=== PATIENT | male | born 1930 | race Caucasian/White ===

== ENCOUNTER 2016-12-29 17:41 | Inpatient (IN) | payer OTHER ==
[~2016-12-29] VITALS: Ht 170.2 cm; Wt 70.0 kg
[2016-12-29 19:45] VITALS: BP 154/57; PULSE 83; TEMP 36.6; O2SAT 97; Ht 170.2 cm; Wt 70.0 kg
[2016-12-29] MEDS ORDERED: OXYCODONE HCL IR 5 MG TAB (IMMEDIATE RELEASE) PO PRN (19:45)
[2016-12-29] MEDS ORDERED: ONDANSETRON INJ 2 MG/ML 2 ML VIAL IV PRN (19:45)
[2016-12-29] MEDS ORDERED: ALUMINUM/MAGNESIUM/SIMETH (MAALOX MAX) 30 ML UDC PO PRN (19:45)
[2016-12-29] MEDS ORDERED: MAGNESIUM HYDROXIDE SUSP 30 ML UDC PO PRN (19:45)
[2016-12-29] MEDS ORDERED: MoRPHine SULFATE 4 MG/ML 1 ML CARP\\VIAL IV PRN (19:45)
[2016-12-29] MEDS ORDERED: VANCOMYCIN CONSULT ACTIVE PRN (19:54)
[2016-12-29] MEDS ORDERED: PATIENT'S ALLERGY INFO NEEDS ENTERED SCH (20:00)
[2016-12-29] MEDS ORDERED: PIPERACILL/TAZOBAC CONSULT ACTIVE PRN (20:00)
[2016-12-29] MEDS ORDERED: PATIENT'S HEIGHT AND/OR WEIGHT NEEDED SCH (20:00)
[2016-12-29] MEDS ORDERED: QUETIAPINE FUMARATE 25 MG TAB PO PRN (20:15)
--- NOTE | 2016-12-29 20:24 | History and Physical ---
History & Physical Date & Time of Service: Dec 29, 2016 at 20:15 Chief Complaint: Hand Cellulitis Primary Care Physician: Alok Cardona M.D. History of Present Illness 86-year-old male transferred from [facility] With significant right hand cellulitis after the ER doctor discussed case with Dr. Schumacher. Reportedly the patient had a blood transfusion a few days prior with the IV site in his right proximal forearm and then over the next few days developed pain erythema and swelling to his right hand markedly distal to the IV puncture site. The IV site itself although slightly bruised looks clean dry and intact and not infected. The patient has no significant paresthesias he cannot approximate his hand fully to a fist but he has good capillary refill distally there is no pointing or fluctuance and imaging from [facility] does not suggest a drainable fluid collection. Past Medical/Surgical History Chronic anemia left eye blindness coronary disease with previous NE and CABG gout back fusion total knee arthroplasty right shoulder clean out atrial fibrillation on full anticoagulation states was hospitalized in the summer with heart failure records pending from [facility] Social History Smoking Status: Former Smoker Smokeless Tobacco Use: No Marital Status: Housing status: lives with family Review of Systems Constitutional: + fever, + chills Eyes: + problem reported (loss of vision), No worsening of vision, No eye pain ENT: No hearing loss, No unusual epistaxis Respiratory: No cough, No sputum Cardiovascular: No chest pain, No orthopnea Abdomen: No pain, No nausea, No vomiting Musculoskeletal: + joint pain, + muscle pain, + swelling Genitourinary - Male: + hematuria, + dysuria Neurologic: + memory loss, + paralysis, + weakness (especially difficult gait) Psychiatric: + depression symptoms, + anhedonism, + problem reported (does get hospital confusion) Endocrine: + fatigue, + excessive thirst Integumentary: + rash, + itch Physical Exam General Appearance: WD/WN, + mild distress, + thin Head: normocephalic, atraumatic Eyes: + pertinent finding (left eye is cloudy) ENT: hearing grossly normal, pharynx normal Neck: supple, no JVD Respiratory/Chest: chest non-tender, lungs clear Cardiovascular: + systolic murmur, + irregularly irregular Abdomen/GI: normal bowel sounds, non tender, soft Extremities/Musculoskelatal: no pedal edema, + pertinent finding (marked swelling erythema and warmth to his right hand old Palmar and dorsal aspect) Neurologic/Psych: alert, oriented x 3 Skin: + pertinent finding (redness to his hand) Lymphatic: no adenopathy (no axillary lymphadenopathy) Diagnostics Laboratory Results Microbiology Results 12/29/16 Blood Culture, Received Pending 12/29/16 Blood Culture, Received Pending Diagnostic Radiology Vertebral report from CT scan per Dr. Diaz shows no fluid collection, pending images scanned into our system Laboratory show white count of 4.1 macrocytic anemia hemoglobin 8.7 renal function reasonable 23 and 1.2 chronic kidney disease stage III Sedimentation rate greater than 140? Moderate malnutrition with albumin 2.7 Impression Assessment and Plan 86-year-old male with right hand cellulitis with recent venipuncture for transfusion There is no compartment syndrome or neurological compromise yet the patient has blood cultures from our facility and will be placed on vancomycin and Zosyn has received a vancomycin dose at [facility]. For his history of "heart failure" atrial fibrillation patiently maintain him on his Lasix and potassium his Eliquis and aspirin will be held in case surgical intervention be required and the patient kept nothing by mouth after midnight except meds For his GERD for tonsil be continued For his macrocytic anemia he is typically on B12 B12 and folic acid will be checked Orthopedic consultation DVD preventions contraindicated at this point as he receives Eliquis today afterwards if no surgery is required. May return to this medication for both atrial fibrillation and DVT prevention VTE Prophylaxis VTE Risk Assessment Done? Y/N: Yes Risk Level: Moderate
[2016-12-29] MEDS: MoRPHine SULFATE 2 MG/ML CARP IV PRN ×2 (20:51→21:40)
[2016-12-29] MEDS ORDERED: VANCOMYCIN INJ 750 MG in SODIUM CHLORIDE 0.9% 250ML 250 ML IV SCH (21:00)
[2016-12-29] MEDS ORDERED: PIPERACILL/TAZOBAC IV 3.375 GM in DEXTROSE 5% 100ML IV ONE (21:00)
[2016-12-29] MEDS: DOCUSATE SODIUM 100 MG CAP PO SCH (21:40)
[2016-12-29 22:53] VITALS: BP 129/68; PULSE 63; TEMP 36.7; O2SAT 96
--- NOTE | 2016-12-29 22:59 | Pharmacy Progress Note ---
Pharmacy Antibiotic Consult Date of Service: Dec 29, 2016. Pharmacy Dosing Scope Pharmacy is consulted to initiate vancomycin and Zosyn IV dosing therapy, order appropriate labs and adjust drug dose/frequency. Subjective The patient is a 86 year old male admitted on Dec 29, 2016 at 19:31 as a transfer from [facility] ER with right hand cellulitis with recent venipuncture for transfusion Objective Height (Feet): 5 Height (Inches): 7.00 Weight (Kilograms): 70.000 Recent Pertinent Medications Vancomycin 1000mg given at [facility] Assessment & Plan Vancomycin for right hand cellulitis. Loading dose: 25mg/kmg given [facility] + 750 mg IV X 1 dose on admission here to complete load. Then vanco 1000mg mg (~14mg/kg) IV every 20 hours. Goal trough level estimate: between 15 - 20 mcg/mL. Peak and trough or random level has been ordered for: -19 prior to 0400 dose. Zosyn: 3.375gm x 1 over 30 min, then 3.375gm IV q 8 hrs ext infusion for CrCl > 20ml/min. Pharmacy will continue to follow and will adjust dose/frequency as necessary. Thank you
[2016-12-29] MEDS: ACETAMINOPHEN 325 MG TAB PO PRN (23:38)
[2016-12-30] VITALS (9 sets, daily range): BP systolic 105–165; BP diastolic 42–73; PULSE 62–84; TEMP 36.3–36.9; O2SAT 96–99
[2016-12-30] MEDS: MoRPHine SULFATE 2 MG/ML CARP IV PRN (01:56)
[2016-12-30] MEDS: PIPERACILL/TAZOBAC IV 3.375 GM in DEXTROSE 5% 100ML 100 ML IV SCH ×3 (03:48→20:53)
[2016-12-30 06:32] LABS: HEMATOCRIT 21.7 % (42-52); MEAN CELL VOLUME 99.1 fL (80-100); MEAN CORPUSCULAR HEMOGLOBIN 34.2 pg (25-34); MEAN CORPUSCULAR HGB CONC 34.6 g/dl (32-36); PLATELET COUNT 131 K/uL (130-400); RED BLOOD COUNT 2.19 M/uL (4.7-6.1)
[2016-12-30 07:00] LABS: BUN/CREATININE RATIO 18.2 (10-20); CALCIUM 8.3 mg/dl (8.5-10.1); CREATININE 1.07 mg/dl (0.60-1.40); POTASSIUM 3.9 mmol/L (3.5-5.1)
[2016-12-30] MEDS: DOCUSATE SODIUM 100 MG CAP PO SCH ×2 (08:41→20:53)
[2016-12-30] MEDS: POTASSIUM CHLORIDE 20 MEQ TABCR PO SCH (08:42)
[2016-12-30] MEDS: PANTOprazole SOD 40 MG TAB PO SCH (08:42)
[2016-12-30] MEDS: FUROSEMIDE 40 MG TAB PO SCH (08:42)
[2016-12-30] MEDS: CHOLECALCIFEROL 400 INTER.UNIT TAB PO SCH (09:00)
[2016-12-30] MEDS: CYANOCOBALAMIN 500 MCG TAB (VIT B-12) PO SCH (09:00)
[2016-12-30] MEDS ORDERED: MoRPHine SULFATE 2 MG/ML CARP IV PRN (09:45)
--- NOTE | 2016-12-30 09:55 | Hospitalist Progress Note ---
Hospitalist Progress Note Date of Service Dec 30, 2016. (Kya Woodard PA-C) Subjective Pt evaluation today including: conversation w/ patient, physical exam, chart review, lab review, review of studies, conversation w/ audit consultant (Orthopedics) , review of inpatient medication list Pain: R Hand/Wrist PO Intake: NPO Voiding: no voiding problems Patient seen and evaluated. No acute events overnight. Patient reporting significant pain in the hand and wrist. Has significant swelling and unable to flex fingers or make a fist. Pain extends to mid-forearm but does not impact the elbow. Patient last transfused on 12/25. Hemoglobin 8.7 at [facility] and is 7.5 today. Patient is asymptomatic with appropriate BP, no CP, no SOB. Reporting last dose of Eliquis was 12/29 in the AM. Constitutional: No fever, No chills Eyes: No see HPI ENT: No nasal symptoms, No sore throat Respiratory: No cough, No shortness of breath Cardiovascular: No chest pain, No palpitations Abdomen: No pain, No nausea, No vomiting, No diarrhea, No constipation Musculoskeletal: + swelling (R hand/wrist), + problem reported (pain in R hand/wrist), No calf pain Male : No dysuria Neurologic: No numbness/tingling Heme: No abnormal bleeding/bruising Skin: No rash (Kya Woodard PA-C) Medications Current Inpatient Medications Medications (Trade) Dose Ordered Sig/González Route Start Time Stop Time Status Last Admin Dose Admin Acetaminophen (Tylenol Tab) 650 mg Q4H PRN PO 12/29/16 19:45 01/28/17 19:44 12/29/16 23:38 650 MG Al Hydrox/Mg Hydrox/Simethicone (Maalox Max Susp) 15 ml Q4H PRN PO 12/29/16 19:45 01/28/17 19:44 Magnesium Hydroxide (Milk Of Magnesia Susp) 30 ml Q6H PRN PO 12/29/16 19:45 01/28/17 19:44 Ondansetron HCl (Zofran Inj) 4 mg Q6H PRN IV 12/29/16 19:45 01/28/17 19:44 Vancomycin HCl (Consult) 1 ea UD PRN N/A 12/29/16 19:54 01/28/17 19:53 Piperacillin Sod/ Tazobactam Sod 3.375 gm/Dextrose 115 ml @ 28.75 mls/ hr Q8H IV 12/30/16 04:00 01/09/17 03:59 12/30/16 03:48 28.75 MLS/HR Morphine Sulfate (MoRPHine SULFATE INJ) 4 mg Q4H PRN IV 12/29/16 19:45 01/12/17 19:44 Piperacillin Sod/ Tazobactam Sod (Consult) 1 ea UD PRN N/A 12/29/16 20:00 01/28/17 19:59 Furosemide (Lasix Tab) 40 mg QAM PO 12/30/16 09:00 01/29/17 08:59 12/30/16 08:42 40 MG Pantoprazole Sodium (Protonix Tab) 40 mg QAM PO 12/30/16 09:00 01/29/17 08:59 12/30/16 08:42 40 MG Potassium Chloride (Klor-Con Tab) 20 meq QAM PO 12/30/16 09:00 01/29/17 08:59 12/30/16 08:42 20 MEQ Docusate Sodium (coLACE CAP) 100 mg BID PO 12/29/16 21:00 01/28/17 20:59 12/30/16 08:41 100 MG Cyanocobalamin (Vitamin B-12 Tab) 500 mcg QAM PO 12/30/16 09:00 01/29/17 08:59 Cholecalciferol (Vitamin D Tab) 400 inter.unit QAM PO 12/30/16 09:00 01/29/17 08:59 Quetiapine Fumarate (seroQUEL TAB) 25 mg HS PRN PO 12/29/16 20:15 01/28/17 20:14 Vancomycin HCl 1000 mg/Sodium Chloride 270 ml @ 125 mls/hr Q20H IV 12/30/16 12:00 01/08/17 11:59 Morphine Sulfate (MoRPHine SULFATE INJ) 2 mg Q2H PRN IV 12/30/16 09:45 01/12/17 19:44 UNV (Kya Woodard PA-C) Objective Vital Signs Date Time Temp Pulse Resp B/P (MAP) Pulse Ox O2 Delivery O2 Flow Rate FiO2 12/30/16 07:17 36.6 64 16 138/68 (91) 97 Room Air 12/29/16 23:35 Room Air 12/29/16 22:53 36.7 63 18 129/68 (88) 96 Room Air 12/29/16 19:45 36.6 83 16 154/57 97 Room Air (Kya Woodard PA-C) Physical Exam General Appearance: no apparent distress, + thin Eyes: sclerae normal (R eye), + pertinent finding (L eye blind; pupil with opaque coloration) ENT: hearing grossly normal Neck: supple, no JVD, trachea midline Respiratory/Chest: lungs clear, normal breath sounds, no respiratory distress, no accessory muscle use Cardiovascular: no gallop, no murmur, + irregularly irregular Abdomen: normal bowel sounds, non tender, soft Extremities: no pedal edema, no calf tenderness, + pertinent finding (R edematous hand and fingers; pain to palpation of hand, wrist, and mid-forearm; pulses 2+; immediate cap refill; pain with movement of fingers with thumb, middle, and ring finger most painful) Neurologic/Psychiatric: alert, oriented x 3 Skin: normal color, warm/dry (Kya Woodard, REBECAC) Laboratory Results Last 24 Hours Test 12/30/16 05:46 White Blood Count 3.40 K/uL Red Blood Count 2.19 M/uL Hemoglobin 7.5 g/dL Hematocrit 21.7 % Mean Corpuscular Volume 99.1 fL Mean Corpuscular Hemoglobin 34.2 pg Mean Corpuscular Hemoglobin Concent 34.6 g/dl RDW Standard Deviation 62.5 fL RDW Coefficient of Variation 17.4 % Platelet Count 131 K/uL Mean Platelet Volume 10.0 fL Sodium Level 136 mmol/L Potassium Level 3.9 mmol/L Chloride Level 103 mmol/L Carbon Dioxide Level 28 mmol/L Anion Gap 5.0 mmol/L Blood Urea Nitrogen 20 mg/dl Creatinine 1.07 mg/dl Est Creatinine Clear Calc Drug Dose 48.1 ml/min Estimated GFR () 73.5 Estimated GFR (Non- 63.4 BUN/Creatinine Ratio 18.2 Random Glucose 83 mg/dl Calcium Level 8.3 mg/dl Vitamin B12 Level > 2000 pg/mL Folate 22.07 ng/mL (Kya Woodard, REBECAC) Assessment and Plan Mr. Maciel is an 86 y/o male with R hand cellulitis 2/2 recent venipuncture for blood transfusion on 12/25 R Hand Cellulitis 2/2 Venipuncture: - BCx x 1 from [facility] positive for gram + cocci - await results and continue to cover with Vanc - Elevation and ice for comfort; PRN Morphine - Zosyn and Vancomycin - Orthopedics following - discussed with Abran Gay - plan for MRI and possible washout this evening Suspect Persistent Atrial Fibrillation: Rate Controlled - Not on rate control medication - Eliquis on hold pending surgical intervention - takes 5 mg BID - last dose in AM Chronic Mixed Diastolic and Systolic CHF: - Appears euvolemic and denies SOB, angina, palpitations, orthopnea - Echo - mild LV dysfunction with global hypokinesis with EF 40-45%; moderate pulmonary HTN - Lasix 40 mg daily - will hold overnight in anticipation of surgical intervention today and place when kidney function evaluated Macrocytic Anemia: - Last transfusion on 12/25. Hemoglobin at 7.5 this AM and improved to 8.2. Asymptomatic - Will hold off on transfusion at this time - Continue B12 and folate - labs acceptable CKD Stage III: STABLE - Monitor renal function zenaida. after surgical intervention Pre-Operative Clearance: - Patient with CHF and H/O HI with CABG - no chest pain and ambulates without chest pain or significant dyspnea - CKD stable with Cr 1.07 and estimate GFR 63 - Functionally independent but has a level of protein malnutrition - Patient HR currently rate controlled A Fib and last dose of Eliquis > 24 hrs - Patient is optimal for surgical intervention Disposition: - Pain management and IV Abx with possible washout today - possible D/C 3-4 days Continued [facility] stay due to: multiple IV medications needed Discharge planning: home (Kya Woodard, PA-C) i personally examined pt and verified all wayne points сергей Woodard PAC feeling hand pain about the same no real change w abx awaiting surgery this evening vitals noted nad breathing unlabored hand swollen, erythematous and tender, no crepitis hand cellulitis - IV abx, for OR tonight otherwise as above (Alphonso Schumacher D.O.)
[2016-12-30] MEDS: VANCOMYCIN INJ 1,000 MG in SODIUM CHLORIDE 0.9% 250ML 250 ML IV SCH (12:35)
[2016-12-30 12:36] LABS: HEMATOCRIT 23.6 % (42-52)
[2016-12-30] MEDS ORDERED: ATROPINE SULFATE 0.1 MG/ML 5ML SYR IV PRN (16:45)
[2016-12-30] MEDS ORDERED: ONDANSETRON INJ 2 MG/ML 2 ML VIAL IV PRN (16:45)
[2016-12-30] MEDS ORDERED: EpHEDrine SULFATE INJ 50 MG/ML AMP IV PRN (16:45)
[2016-12-30] MEDS ORDERED: ONDANSETRON INJ 2 MG/ML 2 ML VIAL ONE (16:52)
[2016-12-30] MEDS ORDERED: FENTANYL CITRATE INJ 50 MCG/1 ML 2 ML VIAL ONE ×2 (16:52→18:17)
[2016-12-30] MEDS ORDERED: LIDOCAINE HCL 2% 2 ML VIAL (20MG/ML) ONE (16:52)
[2016-12-30] MEDS ORDERED: PROPOFOL IV EMULSION 10 MG/ML 20 ML VIAL IV ONE (16:52)
[2016-12-30] MEDS ORDERED: BUPIVACAINE 0.5 % 5 MG/1 ML MPF 30ML VIAL ONE (16:56)
[2016-12-30] MEDS ORDERED: BACITRACIN 50000 UNIT VIAL ONE (16:58)
--- NOTE | 2016-12-30 17:18 | History & Physical Bridge Note ---
H&P Re-Evaluation Bridge Note: I have examined the patient, reviewed the History & Physical and in the interval since the performance of the History & Physical I have noted the following changes of clinical significance: I saw him in the preop haolding area, discussed r/b reasonalbe outcomes. will plan for right wrist I and D, possble felxor tenosynovesctomy No changes noted
--- NOTE | 2016-12-30 18:36 | [facility] Post Operative Brief Note ---
Immediate Operative Summary Operative Date Dec 30, 2016. Pre-Operative Diagnosis Right Hand Flexor Tenosynovitis Post-Operative Diagnosis Right Hand Flexor Tenosynovitis Procedure(s) Performed Right Hand Flexor Tenosynovectomy, Aspiration Right Wrist Joint Surgeon Dr. Schumacher Comic Book Writer Surgeon(s) no Estimated Blood Loss 10cc Findings large amount of inflamatory fluid in the carpal tunnel. Specimens Pathology - A. Synovium Right Wrist For Culture - 1. Right wrist fluid - Gram Stain, culture and sensitivity, Aerobic/anaerobic 2. Right wrist joint - Gram Stain, culture and sensitivity, Aerobic/anaerobic 3. Right radiocarpal joint - crustal analysis, cell count to rule out gout Drains no Anesthesia gen Complication(s) None Disposition Recovery Room / PACU
[2016-12-30] MEDS: FENTANYL CITRATE INJ 50 MCG/1 ML 2 ML VIAL IV PRN ×2 (18:59→19:04)
--- NOTE | 2016-12-30 19:09 | Anesthesiology Progress Note ---
Anesthesia Post Op Note Date & Time Dec 30, 2016 at 19:09 Vital Signs Pain Intensity: 5 Vital Signs Past 12 Hours Date Time Temp Pulse Resp B/P (MAP) Pulse Ox O2 Delivery O2 Flow Rate FiO2 12/30/16 19:00 75 28 172/85 100 Oxymask 10 12/30/16 18:50 73 25 181/83 100 Oxymask 10 12/30/16 18:41 36.5 64 24 174/82 98 Oxymask 10 12/30/16 15:33 36.8 74 18 155/70 (98) 96 Room Air 12/30/16 11:14 36.4 76 16 137/67 (90) 97 Room Air 12/30/16 07:35 Room Air 12/30/16 07:17 36.6 64 16 138/68 (91) 97 Room Air Notes Mental Status: alert / awake / arousable, participated in evaluation Pt Amnestic to Procedure: Yes Nausea / Vomiting: adequately controlled Pain: adequately controlled Airway Patency, RR, SpO2: stable & adequate BP & HR: stable & adequate Hydration State: stable & adequate Anesthetic Complications: no major complications apparent
--- NOTE | 2016-12-30 19:57 | OPERATIVE REPORT ---
DATE OF OPERATION: 12/30/2016 PREOPERATIVE DIAGNOSIS: Right wrist infection. POSTOPERATIVE DIAGNOSIS: Right wrist flexor tenosynovitis. PROCEDURE: 1. Right flexor synovectomy at the wrist and forearm. 2. Right wrist aspiration of radiocarpal joint. 3. Median nerve block by surgeon. SURGEON: Dr. Schumacher. GRADUATE TEACHING ASSISTANT: None. ANESTHESIA: General. INDICATIONS: This is a gentleman with progressive pain and swelling in the wrist. He presented with a markedly elevated sed rate of 140. He is transferred from [facility]. He presents for irrigation, debridement and other work as indicated. I saw the patient in preoperative holding area. We discussed risks, benefits, reasonable outcomes and options of treatment. I discussed with him that I may make an incision dorsally and/or volarly to perform irrigation and debridement. I discussed possibility this may represent gout versus infection. He is understanding of these issues. The risks and benefits have been discussed including, but not limited to, risk of infection, nerve injury, stiffness, loss of motion, failure to improve, etc. The patient is agreeable and wishes to proceed. DESCRIPTION OF OPERATION: With an 18 gauge needle, I aspirated the patient's wrist. I obtained a small amount of fluid, but no evidence of gross purulence in the radiocarpal joint. The patient has significant swelling of the volar aspect of the wrist and elected to proceed with opening the volar aspect of the wrist. A made a longitudinal incision over the wrist. Dissection was carried down through the skin and subcutaneous tissue. Incision was made just slightly ulnar to the palmaris longus. Dissection was carried down through the skin and subcutaneous tissue. The fascial layer was sharply incised. There was a large amount of serous fluid encountered, this was slightly dark, did not appear to contain any chalky whitish substance and did not have the appearance of pus. The fluid was sent to pathology to rule out crystals and was sent for culture as well. The radiocarpal joint aspiration was separately sent for crystals as well. There was also significant accumulation of a friable fatty looking tissue, which I sent for pathology. I extended the incision over the carpal tunnel and I released the transverse carpal ligament. The median nerve was identified and protected throughout the case and this was retracted in a radial direction. There was significant synovitis amongst the flexor tendons and there was fluid through the carpal tunnel and extending approximately 6 inches proximal to the wrist crease. Fluid was evacuated. A flexor tenosynovectomy was performed in the wrist and extending into the carpal tunnel. Debridement was performed and the area was copiously irrigated with 3 liters of bacitracin impregnated normal saline. Tourniquet was let down, hemostasis was obtained with bipolar electrocautery. Skin was closed with 4-0 Monocryl. After the wrist incision was closed, I performed a median nerve block, injecting approximately 6 mL of Marcaine into the region of the median nerve proximal to the incision. This was done for pain relief, post-surgery. The patient sent to the PACU in a stable condition in a soft dressing. POSTOP PLAN: Range of motion as tolerated and monitor cultures with monitoring of the wound. I discussed the results of procedure in detail with the family. I attest to the content of the Intraoperative Record and any orders documented therein. Any exception s are noted below.
[2016-12-30 20:21] LABS: SYNOVIAL FLUID APPEARANCE TURBID; SYNOVIAL FLUID COLOR RED; SYNOVIAL FLUID MONONUC RELAT 4.2 %; SYNOVIAL FLUID POLYNUC RELAT 95.8 %
[2016-12-30] MEDS: ACETAMINOPHEN 325 MG TAB PO PRN (20:53)
[2016-12-31 03:26] VITALS: BP 126/67; PULSE 66; TEMP 37.1; O2SAT 96
[2016-12-31] MEDS: PIPERACILL/TAZOBAC IV 3.375 GM in DEXTROSE 5% 100ML 100 ML IV SCH ×3 (03:51→19:59)
[2016-12-31 06:18] LABS: BUN/CREATININE RATIO 19.6 (10-20); CALCIUM 8.4 mg/dl (8.5-10.1); CREATININE 1.09 mg/dl (0.60-1.40); POTASSIUM 3.8 mmol/L (3.5-5.1)
[2016-12-31 07:31] VITALS: BP 140/67; PULSE 59; TEMP 37; O2SAT 97
[2016-12-31] MEDS: DOCUSATE SODIUM 100 MG CAP PO SCH ×2 (07:49→20:36)
[2016-12-31] MEDS: CHOLECALCIFEROL 400 INTER.UNIT TAB PO SCH (07:49)
[2016-12-31] MEDS: VANCOMYCIN INJ 1,000 MG in SODIUM CHLORIDE 0.9% 250ML 250 ML IV SCH (07:49)
[2016-12-31] MEDS: PANTOprazole SOD 40 MG TAB PO SCH (07:49)
[2016-12-31] MEDS: POTASSIUM CHLORIDE 20 MEQ TABCR PO SCH (07:50)
[2016-12-31] MEDS: CYANOCOBALAMIN 500 MCG TAB (VIT B-12) PO SCH (07:50)
[2016-12-31 11:20] VITALS: BP 126/79; PULSE 71; TEMP 36.8; O2SAT 94
--- NOTE | 2016-12-31 11:51 | Orthopedic Progress Note ---
Orthopedic Progress Note Date of Service Dec 31, 2016. Subjective Post OP Day: 1 Reports: feeling well Additional Notes: States that his hand is feeling better today. Having a few sharp pains off and on in the wrist. Objective Dressing intact. Fingers swollen. States he has only mild tingling in the fingers. Good cap refill. Moving the fingers better than yesterday. Date Time Temp Pulse Resp B/P (MAP) Pulse Ox O2 Delivery O2 Flow Rate FiO2 12/31/16 07:31 37.0 59 16 140/67 (91) 97 Room Air 12/31/16 07:30 Room Air 12/31/16 03:26 37.1 66 16 126/67 (86) 96 Room Air 12/31/16 00:15 Room Air 12/30/16 23:32 36.9 62 16 120/53 (75) 96 Room Air 12/30/16 22:29 36.9 79 16 105/42 (63) 98 Nasal Cannula 2.0 12/30/16 21:40 36.7 71 16 134/55 (81) 98 Nasal Cannula 2.0 12/30/16 20:35 36.3 81 16 144/71 (95) 99 Nasal Cannula 2.0 12/30/16 20:04 36.5 84 18 165/73 (103) 99 Nasal Cannula 2.0 12/30/16 19:35 97 Nasal Cannula 2.0 12/30/16 19:35 97 Nasal Cannula 2.0 12/30/16 19:20 36.6 74 24 149/74 98 Nasal Cannula 2 12/30/16 19:10 76 23 165/83 100 Nasal Cannula 2 12/30/16 19:00 75 28 172/85 100 Oxymask 10 12/30/16 18:50 73 25 181/83 100 Oxymask 10 12/30/16 18:41 36.5 64 24 174/82 98 Oxymask 10 12/30/16 15:33 36.8 74 18 155/70 (98) 96 Room Air Laboratory Results 24 Hours: Test 12/30/16 11:59 Hematocrit 23.6 % Hemoglobin 8.2 g/dL Additional Notes: Crystal Analysis Result Comment: Review of a synovial fluid specimen for crystals shows scattered, weakly birefringent rhomboid to eleni shaped crystals present. The crystals are both intra and extracellular. 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 No uric acid crystals of gout are present. Assessment & Plan Assessment: POD 1 s/p 1. Right flexor synovectomy at the wrist and forearm. 2. Right wrist aspiration of radiocarpal joint. 3. Median nerve block by surgeon. 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 Cultures pending. Plan: Dressing change tomorrow
[2016-12-31 12:13] LABS: BASO % 0.5 %; BASO ABS # 0.02 K/uL (0-0.2); EOS % 4.8 %; HEMATOCRIT 22.3 % (42-52); IG% 0.5 %; LYMPH % 19.8 %; LYMPH ABS # 0.74 K/uL (1.2-3.4); MEAN CELL VOLUME 98.7 fL (80-100); MEAN CORPUSCULAR HGB CONC 35.4 g/dl (32-36); MEAN PLATELET VOLUME 9.3 fL (7.4-10.4); NEUT % 62.4 %; PLATELET COUNT 138 K/uL (130-400); RED BLOOD COUNT 2.26 M/uL (4.7-6.1); WHITE BLOOD COUNT 3.74 K/uL (4.8-10.8)
--- NOTE | 2016-12-31 12:35 | Hospitalist Progress Note ---
Hospitalist Progress Note Date of Service Dec 31, 2016. (Kya Woodard PA-C) Subjective Pt evaluation today including: conversation w/ patient, physical exam, chart review, lab review, review of studies, review of inpatient medication list Pain: R Hand PO Intake: Adequate Voiding: no voiding problems Patient seen and evaluated. No acute events overnight. S/P I&D with crystal analysis suggesting pseudogout. Reporting pain is better than yesterday but having sharp sensations in the hand/ wrist. Pain controlled with current regimen Has a little bit more ROM with fingers compared to yesterday and less pain. Constitutional: No fever, No chills Respiratory: No shortness of breath Cardiovascular: No chest pain, No palpitations Abdomen: No pain, No nausea, No vomiting, No diarrhea, No constipation Musculoskeletal: + problem reported (R hand tender but improved), No calf pain Male : No dysuria Heme: No abnormal bleeding/bruising (Kya Woodard, REBECAC) Medications Current Inpatient Medications Medications (Trade) Dose Ordered Sig/González Route Start Time Stop Time Status Last Admin Dose Admin Acetaminophen (Tylenol Tab) 650 mg Q4H PRN PO 12/29/16 19:45 01/28/17 19:44 12/30/16 20:53 650 MG Al Hydrox/Mg Hydrox/Simethicone (Maalox Max Susp) 15 ml Q4H PRN PO 12/29/16 19:45 01/28/17 19:44 Magnesium Hydroxide (Milk Of Magnesia Susp) 30 ml Q6H PRN PO 12/29/16 19:45 01/28/17 19:44 Ondansetron HCl (Zofran Inj) 4 mg Q6H PRN IV 12/29/16 19:45 01/28/17 19:44 Vancomycin HCl (Consult) 1 ea UD PRN N/A 12/29/16 19:54 01/28/17 19:53 Piperacillin Sod/ Tazobactam Sod 3.375 gm/Dextrose 115 ml @ 28.75 mls/ hr Q8H IV 12/30/16 04:00 01/09/17 03:59 12/31/16 12:09 28.75 MLS/HR Morphine Sulfate (MoRPHine SULFATE INJ) 4 mg Q4H PRN IV 12/29/16 19:45 01/12/17 19:44 Piperacillin Sod/ Tazobactam Sod (Consult) 1 ea UD PRN N/A 12/29/16 20:00 01/28/17 19:59 Furosemide (Lasix Tab) 40 mg QAM PO 12/30/16 09:00 01/29/17 08:59 Future Hold 12/30/16 08:42 40 MG Pantoprazole Sodium (Protonix Tab) 40 mg QAM PO 12/30/16 09:00 01/29/17 08:59 12/31/16 07:49 40 MG Potassium Chloride (Klor-Con Tab) 20 meq QAM PO 12/30/16 09:00 01/29/17 08:59 12/31/16 07:50 20 MEQ Docusate Sodium (coLACE CAP) 100 mg BID PO 12/29/16 21:00 01/28/17 20:59 12/31/16 07:49 100 MG Cyanocobalamin (Vitamin B-12 Tab) 500 mcg QAM PO 12/30/16 09:00 01/29/17 08:59 12/31/16 07:50 500 MCG Cholecalciferol (Vitamin D Tab) 400 inter.unit QAM PO 12/30/16 09:00 01/29/17 08:59 12/31/16 07:49 400 INTER.UNIT Quetiapine Fumarate (seroQUEL TAB) 25 mg HS PRN PO 12/29/16 20:15 01/28/17 20:14 Vancomycin HCl 1000 mg/Sodium Chloride 270 ml @ 125 mls/hr Q20H IV 12/30/16 12:00 01/08/17 11:59 12/31/16 07:49 125 MLS/HR Morphine Sulfate (MoRPHine SULFATE INJ) 2 mg Q2H PRN IV 12/30/16 09:45 01/12/17 19:44 12/30/16 23:41 2 MG Ibuprofen (Advil Tab) 200 mg Q6H PRN PO 12/31/16 12:00 01/30/17 11:59 (Kya Woodard, OANH) Objective Vital Signs Date Time Temp Pulse Resp B/P (MAP) Pulse Ox O2 Delivery O2 Flow Rate FiO2 12/31/16 07:31 37.0 59 16 140/67 (91) 97 Room Air 12/31/16 07:30 Room Air 12/31/16 03:26 37.1 66 16 126/67 (86) 96 Room Air 12/31/16 00:15 Room Air 12/30/16 23:32 36.9 62 16 120/53 (75) 96 Room Air 12/30/16 22:29 36.9 79 16 105/42 (63) 98 Nasal Cannula 2.0 12/30/16 21:40 36.7 71 16 134/55 (81) 98 Nasal Cannula 2.0 12/30/16 20:35 36.3 81 16 144/71 (95) 99 Nasal Cannula 2.0 12/30/16 20:04 36.5 84 18 165/73 (103) 99 Nasal Cannula 2.0 12/30/16 19:35 97 Nasal Cannula 2.0 12/30/16 19:35 97 Nasal Cannula 2.0 12/30/16 19:20 36.6 74 24 149/74 98 Nasal Cannula 2 12/30/16 19:10 76 23 165/83 100 Nasal Cannula 2 12/30/16 19:00 75 28 172/85 100 Oxymask 10 12/30/16 18:50 73 25 181/83 100 Oxymask 10 12/30/16 18:41 36.5 64 24 174/82 98 Oxymask 10 12/30/16 15:33 36.8 74 18 155/70 (98) 96 Room Air (Kya Woodard, PA-C) Physical Exam General Appearance: no apparent distress Eyes: + pertinent finding (opacity of L eye (blind)) ENT: hearing grossly normal Neck: supple Respiratory/Chest: lungs clear, normal breath sounds, no respiratory distress, no accessory muscle use Cardiovascular: no gallop, no murmur, + irregularly irregular Abdomen: normal bowel sounds, non tender, soft Extremities: no pedal edema, no calf tenderness, + pertinent finding (R hand/ wrist dressed that is C/D/I; cap refill immediate; sensation intact to fingers; limited ROM due to swelling) Neurologic/Psychiatric: alert, oriented x 3 Skin: normal color, warm/dry (Kya Woodard, PA-C) Laboratory Results Last 24 Hours Test 12/30/16 17:55 12/31/16 05:29 12/31/16 12:04 Synovial Fluid Source OTHER Synovial Fluid Color RED Synovial Fluid Appearance TURBID Synovial Fluid WBC 22608 /uL Synovial Fluid RBC 90552 /uL Synovial Fluid Polynuclear WBCs % 95.8 % Synovial Fluid Mononuclear WBCs % 4.2 % Synovial Fluid Crystals Sodium Level 136 mmol/L Potassium Level 3.8 mmol/L Chloride Level 100 mmol/L Carbon Dioxide Level 28 mmol/L Anion Gap 8.0 mmol/L Blood Urea Nitrogen 21 mg/dl Creatinine 1.09 mg/dl Est Creatinine Clear Calc Drug Dose 47.2 ml/min Estimated GFR () 71.9 Estimated GFR (Non- 62.0 BUN/Creatinine Ratio 19.6 Random Glucose 97 mg/dl Calcium Level 8.4 mg/dl White Blood Count 3.74 K/uL Red Blood Count 2.26 M/uL Hemoglobin 7.9 g/dL Hematocrit 22.3 % Mean Corpuscular Volume 98.7 fL Mean Corpuscular Hemoglobin 35.0 pg Mean Corpuscular Hemoglobin Concent 35.4 g/dl Platelet Count 138 K/uL Mean Platelet Volume 9.3 fL Neutrophils (%) (Auto) 62.4 % Lymphocytes (%) (Auto) 19.8 % Monocytes (%) (Auto) 12.0 % Eosinophils (%) (Auto) 4.8 % Basophils (%) (Auto) 0.5 % Neutrophils # (Auto) 2.33 K/uL Lymphocytes # (Auto) 0.74 K/uL Monocytes # (Auto) 0.45 K/uL Eosinophils # (Auto) 0.18 K/uL Basophils # (Auto) 0.02 K/uL RDW Standard Deviation 60.4 fL RDW Coefficient of Variation 16.9 % Immature Granulocyte % (Auto) 0.5 % Immature Granulocyte # (Auto) 0.02 K/uL (Kya Woodard PA-C) Assessment and Plan Mr. Maciel is an 86 y/o male with R hand cellulitis 2/2 recent venipuncture for blood transfusion on 12/25 R Hand Pseudogout S/P R Flexor Synovectomy and Aspiration 12/30: - BCx x 1 from [place] positive for gram + cocci - BCx here with NGTD - Elevation and ice for comfort; PRN Morphine and Ibuprofen - Zosyn and Vancomycin - continue ABx today but suspect D/C tomorrow - cultures with initial red negative for organisms, culture pending - Orthopedics following - plan for dressing change tomorrow Suspect Persistent Atrial Fibrillation: Rate Controlled - Not on rate control medication - Continue to hold Eliquis today. Likely resumed tomorrow Chronic Mixed Diastolic and Systolic CHF: - Appears euvolemic and denies SOB, angina, palpitations, orthopnea - Echo - mild LV dysfunction with global hypokinesis with EF 40-45%; moderate pulmonary HTN - Lasix 40 mg daily - will hold overnight in anticipation of surgical intervention today and place when kidney function evaluated Macrocytic Anemia: - Last transfusion on 12/25. Hemoglobin at 7.9. Asymptomatic. No need for transfusion at this time - Continue B12 and folate - labs acceptable CKD Stage III: STABLE - Monitor renal function zenaida. after surgical intervention Pre-Operative Clearance: - Patient with CHF and H/O AK with CABG - no chest pain and ambulates without chest pain or significant dyspnea - CKD stable with Cr 1.07 and estimate GFR 63 - Functionally independent but has a level of protein malnutrition - Patient HR currently rate controlled A Fib and last dose of Eliquis > 24 hrs - Patient is optimal for surgical intervention Disposition: - Pain management and await cx - likely D/C Abx and conservative treatment for pseudogout Continued [facility] stay due to: multiple IV medications needed Discharge planning: home (Kya Woodard, PA-C) i personally examined pt and verified all wayne points w Dakotah Woodard PAC hand feeling better. no other complaints no cp no sob no fatigue no pineda vitals noted nad hand wrapped but no erythema R hand tenosynovitis - post op findings most c/w pseudogout - continue abx pending Cx. does seem improved. otherwise as above anemia - stable no blood loss no sx. outpt f/u as long as remains stable - appears this was under outpt w/u and f/u (Alphonso Schumacher D.O.)
[2016-12-31 12:48] LABS: COMPLETE YES; LARGE PLATELETS 1+
[2016-12-31 15:25] VITALS: BP 157/67; PULSE 94; TEMP 36.9; O2SAT 97
[2016-12-31] MEDS: IBUPROFEN 200 MG TAB PO PRN (20:36)
[2017-01-01] MEDS: ACETAMINOPHEN 325 MG TAB PO PRN ×3 (00:07→17:01)
[2017-01-01 00:12] VITALS: BP 142/58; PULSE 56; TEMP 36.8; O2SAT 92
[2017-01-01] MEDS ORDERED: VANCOMYCIN TROUGH SCH (03:30)
[2017-01-01 03:44] LABS: HEMATOCRIT 22.8 % (42-52); MEAN CELL VOLUME 98.7 fL (80-100); MEAN CORPUSCULAR HEMOGLOBIN 33.8 pg (25-34); MEAN CORPUSCULAR HGB CONC 34.2 g/dl (32-36); MEAN PLATELET VOLUME 9.1 fL (7.4-10.4); PLATELET COUNT 138 K/uL (130-400); RED BLOOD COUNT 2.31 M/uL (4.7-6.1); WHITE BLOOD COUNT 3.31 K/uL (4.8-10.8)
[2017-01-01 04:03] LABS: BUN/CREATININE RATIO 17.9 (10-20); CALCIUM 8.3 mg/dl (8.5-10.1); CREATININE 1.16 mg/dl (0.60-1.40); POTASSIUM 3.8 mmol/L (3.5-5.1)
[2017-01-01] MEDS: VANCOMYCIN INJ 1,000 MG in SODIUM CHLORIDE 0.9% 250ML 250 ML IV SCH (04:07)
[2017-01-01] MEDS: PIPERACILL/TAZOBAC IV 3.375 GM in DEXTROSE 5% 100ML 100 ML IV SCH ×2 (04:07→12:37)
[2017-01-01 07:19] VITALS: BP 117/52; PULSE 55; TEMP 36.5; O2SAT 98
--- NOTE | 2017-01-01 08:03 | Orthopedic Progress Note ---
Orthopedic Progress Note Date of Service Jan 01, 2017. Subjective Post OP Day: 2 Reports: feeling well Additional Notes: States hand continues to feel better each day. No new complaints. Objective Dressing removed. Mild drainage noted on dressings. Wound with mild dusky erythema. No overt drainage. Moving the fingers a little better today. Sensation intact. Cap refill less than 2 seconds. Wound redressed. Date Time Temp Pulse Resp B/P (MAP) Pulse Ox O2 Delivery O2 Flow Rate FiO2 01/01/17 07:19 36.5 55 16 117/52 (73) 98 Room Air 01/01/17 00:12 36.8 56 18 142/58 (86) 92 Room Air 12/31/16 23:30 Room Air 12/31/16 18:56 Room Air 12/31/16 15:25 36.9 94 16 157/67 (97) 97 Room Air 12/31/16 11:20 36.8 71 16 126/79 (95) 94 Room Air Laboratory Results 24 Hours: Test 12/31/16 12:04 01/01/17 03:33 White Blood Count 3.74 K/uL Red Blood Count 2.26 M/uL Hemoglobin 7.9 g/dL 7.8 g/dL Hematocrit 22.3 % 22.8 % Mean Corpuscular Volume 98.7 fL Mean Corpuscular Hemoglobin 35.0 pg Mean Corpuscular Hemoglobin Concent 35.4 g/dl Platelet Count 138 K/uL Mean Platelet Volume 9.3 fL Neutrophils (%) (Auto) 62.4 % Lymphocytes (%) (Auto) 19.8 % Monocytes (%) (Auto) 12.0 % Eosinophils (%) (Auto) 4.8 % Basophils (%) (Auto) 0.5 % Neutrophils # (Auto) 2.33 K/uL Lymphocytes # (Auto) 0.74 K/uL Monocytes # (Auto) 0.45 K/uL Eosinophils # (Auto) 0.18 K/uL Basophils # (Auto) 0.02 K/uL Assessment & Plan Assessment: POD 2 s/p 1. Right flexor synovectomy at the wrist and forearm. 2. Right wrist aspiration of radiocarpal joint. 3. Median nerve block by surgeon. 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 Cultures NGTD Plan: No further surgery needed at this time. Daily dressing changes. Gentle finger ROM exercises. Follow up with Dr Schumacher in 10-14 days from the day of surgery. Inhouse Planning Pain Management: Morphine, PO Tylenol
--- NOTE | 2017-01-01 08:07 | Consultant Recommendations ---
Hse Coordinator Recommendations Date of Service Jan 01, 2017. Hse Coordinator Recommendations Daily dressing changes until wound remains dry. Then you may change dressing every other day. Ok to shower with a waterproof dressing over the bandage. No tub baths. Do not soak the wound.. Keep bandage clean and dry. You may do gentle range of motion exercises of the fingers daily. Keep the hand elevated when at rest and when sleeping as best as possible with pillows. Follow up with Dr Schumacher 10-14 days from the day of surgery. Call for appointment. [phone]
--- NOTE | 2017-01-01 08:47 | Pharmacy Progress Note ---
Pharmacy Abx Dose Short Note Date of Service Jan 01, 2017. Assessment & Plan Assessment 86 year old male receiving Zosyn and Vancomycin for treatment of cellulitis. Day # 4 of antimicrobial therapy. Item Value Date Time Gram Stain - Final Resulted 12/30/161754 Abscess Wrist Right NO GROWTH TO DATE Gram Stain - Final Resulted 12/30/161754 Joint Fluid/Space (Synovial) Wrist Right NO GROWTH TO DATE Blood Culture - Preliminary Resulted 12/29/162002 Blood NO GROWTH TO DATE. Blood Culture - Preliminary Resulted 12/29/161955 Blood NO GROWTH TO DATE. Ortho progress noted pt most likely has pseudogout. Will likely be discharged today. Plan Vancomycin * Trough level of 12.7 mcg/mL is therapeutic for cellulitis. * Continue dose of 1000 mg IV every 20 hours * Consider stopping antibiotics as cultures have no growth to date. * Goal trough level for cellulitis : ~15 mcg/mL * Will plan to order future levels if vanc is continued. Pharmacy will continue to follow and will adjust dose/frequency as necessary. Thank you.
[2017-01-01] MEDS: DOCUSATE SODIUM 100 MG CAP PO SCH ×2 (09:59→21:18)
[2017-01-01] MEDS: POTASSIUM CHLORIDE 20 MEQ TABCR PO SCH (10:00)
[2017-01-01] MEDS: FUROSEMIDE 40 MG TAB PO SCH (10:00)
[2017-01-01] MEDS: CYANOCOBALAMIN 500 MCG TAB (VIT B-12) PO SCH (10:01)
[2017-01-01] MEDS: PANTOprazole SOD 40 MG TAB PO SCH (10:01)
[2017-01-01] MEDS: CHOLECALCIFEROL 400 INTER.UNIT TAB PO SCH (10:02)
[2017-01-01 11:24] VITALS: BP 143/67; PULSE 60; TEMP 36.6; O2SAT 98
--- NOTE | 2017-01-01 13:38 | Discharge Instructions ---
Discharge Instructions Date of Service Jan 01, 2017. Admission Reason for Admission: Hand Cellulitis Discharge Discharge Diagnosis / Problem: acute gout Discharge Goals Goal(s): Decrease discomfort Activity Recommendations Activity Limitations: resume your previous activity . Current Hospital Diet Patient's current hospital diet: Regular Diet Discharge Diet Recommended Diet: AHA Diet (Heart Healthy) Procedures Procedures Performed: Right Hand Flexor Tenosynovectomy, Aspiration Right Wrist Joint Pending Studies Studies pending at discharge: no Medical Emergencies . Who to Call and When: Medical Emergencies: If at any time you feel your situation is an emergency, please call 911 immediately. . Non-Emergent Contact Non-Emergency issues call your: Primary Care Provider . . "Provider Documentation" section prepared by Elyse Shetty. . Asbestos Coverer Recommendations Asbestos Coverer Recommendations: Daily dressing changes until wound remains dry. Then you may change dressing every other day. Ok to shower with a waterproof dressing over the bandage. No tub baths. Do not soak the wound.. Keep bandage clean and dry. You may do gentle range of motion exercises of the fingers daily. Keep the hand elevated when at rest and when sleeping as best as possible with pillows. Follow up with Dr Schumacher 10-14 days from the day of surgery. Call for appointment. [phone] VTE Core Measure Inpt VTE Proph given/why not?: Enoxaparin (Lovenox)SQ
[2017-01-01] MEDS ORDERED: VTMD400 PO (13:41)
[2017-01-01] MEDS ORDERED: VTMB12 PO (13:41)
[2017-01-01] MEDS ORDERED: COLCPOW6 OR (13:41)
[2017-01-01] MEDS ORDERED: PRED10TA PO (13:41)
[2017-01-01] MEDS: HYDROCORTISONE IV 100 MG in SYRINGE 0 ML IV SCH ×2 (14:05→22:16)
[2017-01-01] MEDS: COLCHICINE 0.6 MG TAB PO SCH ×2 (14:05→21:18)
[2017-01-01 15:00] VITALS: BP 158/64; PULSE 60; TEMP 36.4; O2SAT 98
--- NOTE | 2017-01-01 18:14 | Progress Note ---
Subjective Date of Service: Jan 01, 2017. Subjective Pt evaluation today including: conversation w/ patient, conversation w/ family , physical exam, chart review, lab review, review of studies, review of inpatient medication list Review of Systems Constitutional: No see HPI, No fever, No chills, No sweats, No weight loss, No weakness, No fatigue, No problem reported Eyes: No see HPI, No worsening of vision, No eye pain, No redness, No discharge , No diplopia, No problem reported ENT: No see HPI, No hearing loss, No unusual epistaxis, No nasal symptoms, No sore throat, No tinnitus, No dental problems, No trouble swallowing, No problem reported Respiratory: No see HPI, No cough, No sputum, No wheezing, No shortness of breath, No dyspnea on exertion, No dyspnea at rest, No hemoptysis, No problem reported Cardiac: No see HPI, No chest pain, No orthopnea, No PND, No edema, No claudication, No palpitations, No problem reported Abdomen: No see HPI, No pain, No nausea, No vomiting, No diarrhea, No constipation, No GI bleeding, No problem reported Musculoskeletal: + joint pain, + muscle pain, No see HPI, No swelling, No calf pain, No problem reported Male : No see HPI, No dysuria, No urinary frequency, No incontinence, No nocturia more than once/night, No slowing stream, No hematuria, No sexual dysfunction, No problem reported Neurologic: No see HPI, No memory loss, No paralysis, No weakness, No numbness/ tingling, No vertigo, No balance problems, No problem reported Psychiatric: No see HPI, No depression symptoms, No anhedonism, No anxiety, No insomnia, No substance abuse, No problem reported Heme: No see HPI, No abnormal bleeding/bruising, No clotting problems, No swollen lymph nodes, No night sweats, No problem reported Skin: No see HPI, No rash, No itch, No new/changing skin lesions, No color change, No bleeding, No problem reported Objective Vital Signs Date Time Temp Pulse Resp B/P (MAP) Pulse Ox O2 Delivery O2 Flow Rate FiO2 01/01/17 16:50 Room Air 01/01/17 15:00 36.4 60 16 158/64 (95) 98 Room Air 01/01/17 11:24 36.6 60 16 143/67 (92) 98 Room Air 01/01/17 11:24 Room Air 01/01/17 07:35 Room Air 01/01/17 07:19 36.5 55 16 117/52 (73) 98 Room Air 01/01/17 00:12 36.8 56 18 142/58 (86) 92 Room Air 12/31/16 23:30 Room Air 12/31/16 18:56 Room Air Physical Exam General Appearance: WD/WN, no apparent distress Eyes: normal inspection, EOMI ENT: normal ENT inspection, hearing grossly normal Neck: supple Respiratory/Chest: chest non-tender, lungs clear, normal breath sounds, no respiratory distress, no accessory muscle use Cardiovascular: regular rate, rhythm, no edema, no gallop, no JVD, no murmur Abdomen: non tender, soft, no organomegaly, no pulsatile mass Extremities: + inflammation (right wrist is swollen and tender , wrapped but clear DROM) Neurologic/Psychiatric: fundraising specialist II-XII nml as tested, no motor/sensory deficits, alert, normal mood/affect, oriented x 3 Skin: normal color, warm/dry Lymphatic: no adenopathy Laboratory Results Last 24 Hours Test 01/01/17 03:33 01/01/17 18:05 White Blood Count 3.31 K/uL Red Blood Count 2.31 M/uL Hemoglobin 7.8 g/dL Hematocrit 22.8 % Mean Corpuscular Volume 98.7 fL Mean Corpuscular Hemoglobin 33.8 pg Mean Corpuscular Hemoglobin Concent 34.2 g/dl RDW Standard Deviation 61.3 fL RDW Coefficient of Variation 17.1 % Platelet Count 138 K/uL Mean Platelet Volume 9.1 fL Sodium Level 137 mmol/L Potassium Level 3.8 mmol/L Chloride Level 102 mmol/L Carbon Dioxide Level 28 mmol/L Anion Gap 7.0 mmol/L Blood Urea Nitrogen 21 mg/dl Creatinine 1.16 mg/dl Est Creatinine Clear Calc Drug Dose 44.3 ml/min Estimated GFR () 66.7 Estimated GFR (Non- 57.5 BUN/Creatinine Ratio 17.9 Random Glucose 100 mg/dl Calcium Level 8.3 mg/dl Vancomycin Level Trough 12.7 mcg/ml Assessment and Plan Mr. Maciel is an 86 y/o male with R hand cellulitis 2/2 recent venipuncture for blood transfusion on 12/25 Right wrist inflammation/swelling and erythema secondary to pseudogout Chronic atrial fibrillation, rate controlled Chronic mixed diastolic and systolic CHF without exacerbation Anemia unspecified Chronic kidney disease stage 2-3 Plan Status post I&D of right wrist, positive rhomboid-shaped crystals likely calcium pyrophosphate indicating pseudogout DC all antibiotics Start patient on colchicine and hydrocortisone Monitor renal function closely Follow up blood culture and wound culture Continue home meds B12 and folic acid are within normal limits Obtain iron studies Continue supportive care Continue holding Eliquis until cleared by surgeon Continued [facility] stay due to: multiple IV medications needed Discharge planning: home
[2017-01-01 19:18] LABS: C-REACTIVE PROTEIN 8.47 mg/dl (0-0.29); FERRITIN 1616.1 ng/ml (8.0-388.0)
[2017-01-01] MEDS: IBUPROFEN 200 MG TAB PO PRN (21:18)
[2017-01-01 23:11] VITALS: BP 121/63; PULSE 59; TEMP 36.7; O2SAT 97
[2017-01-02] MEDS: HYDROCORTISONE IV 100 MG in SYRINGE 0 ML IV SCH ×2 (06:02→12:23)
[2017-01-02 06:39] LABS: HEMATOCRIT 22.1 % (42-52); IG% 0.8 %; LYMPH % 16.3 %; LYMPH ABS # 0.41 K/uL (1.2-3.4); MEAN CELL VOLUME 98.2 fL (80-100); MEAN CORPUSCULAR HEMOGLOBIN 35.1 pg (25-34); MEAN CORPUSCULAR HGB CONC 35.7 g/dl (32-36); MEAN PLATELET VOLUME 9.9 fL (7.4-10.4); MONO % 5.2 %; NEUT % 77.7 %; PLATELET COUNT 160 K/uL (130-400); RED BLOOD COUNT 2.25 M/uL (4.7-6.1); WHITE BLOOD COUNT 2.51 K/uL (4.8-10.8)
[2017-01-02 07:02] VITALS: BP 124/85; PULSE 55; TEMP 36.4; O2SAT 98
[2017-01-02 07:06] LABS: ALB/GLOB RATIO 0.5 (0.9-2); BUN/CREATININE RATIO 19.5 (10-20); CALCIUM 8.6 mg/dl (8.5-10.1); CREATININE 1.14 mg/dl (0.60-1.40); POTASSIUM 3.7 mmol/L (3.5-5.1)
[2017-01-02 07:13] LABS: COMPLETE YES
[2017-01-02] MEDS: COLCHICINE 0.6 MG TAB PO SCH (08:59)
[2017-01-02] MEDS: CHOLECALCIFEROL 400 INTER.UNIT TAB PO SCH (08:59)
[2017-01-02] MEDS: FUROSEMIDE 40 MG TAB PO SCH (08:59)
[2017-01-02] MEDS: PANTOprazole SOD 40 MG TAB PO SCH (09:00)
[2017-01-02] MEDS: DOCUSATE SODIUM 100 MG CAP PO SCH (09:00)
[2017-01-02] MEDS: CYANOCOBALAMIN 500 MCG TAB (VIT B-12) PO SCH (09:00)
[2017-01-02] MEDS: POTASSIUM CHLORIDE 20 MEQ TABCR PO SCH (09:01)
[2017-01-02 11:54] VITALS: BP 124/85; PULSE 55; TEMP 36.4; O2SAT 98
--- NOTE | 2017-01-02 17:42 | Discharge Summary ---
Discharge Summary Date of Service Jan 02, 2017. Discharge Summary Admission Date: Dec 29, 2016 at 19:39 Discharge Date: Jan 02, 2017 Discharge Disposition: Home Principal Diagnosis: right wrist gout Problems/Secondary Diagnoses: Chronic atrial fibrillation, rate controlled Chronic mixed diastolic and systolic CHF without exacerbation Anemia unspecified Chronic kidney disease stage 2-3 Medication Reconciliation New Medications: Colchicine (Colchicine) 1 Pow Pow 1 TAB OR BID for 5 Days, #10 Prednisone Tab (Prednisone) 10 Mg Tab 10 MG PO BID for 3 Days, #6 TAB Cholecalciferol (Vitamin D3) 400 Inter.unit Tab 400 INTER.UNIT PO QAM for 30 Days, #30 TAB Referrals At Discharge Follow up Referrals: Orthopedics Referral - Within 1-2 Weeks with Kevin Schumacher MD Discharge Exam Review of Systems: Constitutional: No fever, No chills, No sweats, No weight loss, No weakness , No fatigue, No problem reported Eyes: No worsening of vision, No eye pain, No redness, No discharge, No diplopia, No problem reported ENT: No hearing loss, No unusual epistaxis, No nasal symptoms, No sore throat, No tinnitus, No dental problems, No trouble swallowing, No problem reported Respiratory: No cough, No sputum, No wheezing, No shortness of breath, No dyspnea on exertion, No dyspnea at rest, No hemoptysis, No problem reported Cardiovascular: No chest pain, No orthopnea, No PND, No edema, No claudication, No palpitations, No problem reported Abdomen: No pain, No nausea, No vomiting, No diarrhea, No constipation, No GI bleeding, No problem reported Musculoskeletal: + joint pain Genitourinary - Male: No hematuria, No dysuria, No urinary frequency, No urinary urgency, No urinary hesitancy, No urinary retention, No urinary incontinence, No penile discharge, No lesions, No impotence, No problem reported Neurologic: No memory loss, No paralysis, No weakness, No numbness/tingling , No vertigo, No balance problems, No problem reported Psychiatric: No depression symptoms, No anhedonism, No anxiety, No insomnia , No substance abuse, No problem reported Endocrine: No fatigue, No excessive thirst, No excessive urination, No problem reported Hematologic / Lymphatic: No abnormal bleeding/bruising, No clotting problems , No swollen lymph nodes, No night sweats, No problem reported Integumentary: No rash, No itch, No new/changing skin lesions, No color change, No bleeding, No problem reported Physical Exam: General Appearance: WD/WN, no apparent distress Eyes: normal inspection, EOMI ENT: normal ENT inspection, hearing grossly normal Neck: supple Respiratory/Chest: chest non-tender, lungs clear, normal breath sounds, no respiratory distress, no accessory muscle use Cardiovascular: regular rate, rhythm, no edema, no gallop, no JVD, no murmur Abdomen / GI: normal bowel sounds, non tender, soft Extremities: + inflammation, + swelling Neurologic/Psychiatric: reimbursement consultant II-XII nml as tested, no motor/sensory deficits , alert, normal mood/affect, normal reflexes, oriented x 3 Skin: normal color, warm/dry, no rash Hospital Course Mr. Maciel is an 86 y/o male with R hand inflammation and decreased ROM. presented to ED and was admitted. He was started on IV Abx for possible cellulitis. orthopedic was consulted. Status post I&D of right wrist, positive rhomboid-shaped crystals likely calcium pyrophosphate indicating pseudogout DCed all antibiotics Started patient on colchicine and hydrocortisone and significantly improved after starting the hydrocortisone and the colchicin. it appears that Right wrist inflammation/swelling and erythema secondary to pseudogout. he was discharged home on steroids and colchicin. Total Time Spent: Greater than 30 minutes This includes examination of the patient, discharge planning, medication reconciliation, and communication with other providers. Discharge Instructions Please refer to the electronic Patient Visit Report (Discharge Instructions) for additional information.
== END 2017-01-02 14:10 | disposition home or self-care (01) | DRG 513 ==
LOC: C.MSN 19:31 → UNDOADMIN 19:31 → C.MSN 19:39
PROVIDERS: ADMIT Internal Medicine; ATTEND Internal Medicine
PROC: 0R9 Upper Joints, Drainage (ICD-10-PCS; principal; 2016-12-30 08:00)
PROC: 0RBN0ZZ Excision of Right Wrist Joint, Open Approach (ICD-10-PCS; principal; 2016-12-30 08:00)
DX: M11.831 Other specified crystal arthropathies, right wrist (principal); I48.1 Persistent atrial fibrillation; I50.42 Chronic combined systolic (congestive) and diastolic (congestive) heart failure; M10.031 Idiopathic gout, right wrist; N18.3 Chronic kidney disease, stage 3 (moderate); D53.9 Nutritional anemia, unspecified; I25.2 Old myocardial infarction; Z95.1 Presence of aortocoronary bypass graft; Z79.01 Long term (current) use of anticoagulants